=== PATIENT | female | born 1955 ===

== ENCOUNTER 2022-12-10 05:20 | Day surgery (SDC) | payer OTHER ==
[~2022-12-10 05:20] MED LIST: CARDIZEM30 MG PO; COZAAR50 MG PO; DULOXETINE HCL30 MG PO; HORIZANT300 MG PO; HYDROCHLOROTHIA25 MG PO; LASIX40 MG PO; PEPCID40 MG PO; PROTONIX20 MG PO; SYNTHROID50 MCG PO
[2022-12-10] MEDS ORDERED: MACROBID 100 M100 MG PO (11:31)
[2022-12-10] MEDS ORDERED: TRAM1TAB98 PO (11:31)
== END 2022-12-10 16:30 | disposition home or self-care (01) ==
LOC: CIR.AMB 05:20
PROVIDERS: ATTEND Obstetrics & Gynecology Gynecology
DX: N81.6 Rectocele (principal); N81.5 Vaginal enterocele; Z20.822 Contact with and (suspected) exposure to COVID-19; Z88.2 Allergy status to sulfonamides